=== PATIENT | male | born 1945 | race Caucasian/White ===

== ENCOUNTER 2024-02-14 08:00 | Outpatient (CLI) | payer BC | END 2024-02-14 08:01 | disposition home or self-care (01) | LOC: CSHMRI 08:00 | PROVIDERS: ATTEND Orthopaedic Surgery | DX: M47.26 Other spondylosis with radiculopathy, lumbar region (principal); M54.50 Low back pain, unspecified; I71.43 Infrarenal abdominal aortic aneurysm, without rupture; I72.3 Aneurysm of iliac artery; M48.061 Spinal stenosis, lumbar region without neurogenic claudication | CPT/HCPCS: 72131; 72148 ==